=== PATIENT | female | born 1955 | race Asian ===

== ENCOUNTER 2021-02-06 16:32 | Emergency (ER) | payer OTHER, MEDICARE ==
[2021-02-07 10:07] LABS: SARS-CoV-2 NAA Not Detected (Not Detected)
== END 2021-02-06 17:02 | disposition home or self-care (01) ==
LOC: JVIRT 16:32
DX: Z11.52 Encounter for screening for COVID-19 (principal)
CPT/HCPCS: C9803; Q3014-GT; U0003; U0005

== ENCOUNTER 2021-04-30 07:29 | Day surgery (SDC) | payer OTHER, MEDICARE ==
[2021-04-25 09:16] VITALS: BMI 30.2
[2021-04-30] MEDS ORDERED: PROPOFOL 20 ML ONE ×2 (07:55)
[2021-04-30] MEDS ORDERED: LIDOCAINE HCL/PF 2% SDV 5ML VIAL ONE (07:55)
[2021-04-30 09:08] VITALS: TEMP 98
[2021-04-30 09:45] VITALS: BP 112/61; PULSE 75
== END 2021-04-30 09:50 | disposition home or self-care (01) ==
LOC: FASU-ENDO 07:29
PROVIDERS: ATTEND Internal Medicine Gastroenterology
PROC: 0DJD8ZZ Inspection of Lower Intestinal Tract, Via Natural or Artificial Opening Endoscopic (ICD-10-PCS; principal; 2021-04-30 08:32)
DX: Z86.010 Personal history of colon polyps (principal)
CPT/HCPCS: 82962